=== PATIENT | female | born 1980 | race American Indian/Alaskan Native ===

== ENCOUNTER 2018-11-17 12:36 | Inpatient (IN) | payer OTHER ==
[2018-11-17] MEDS ORDERED: ZOFRAN ONE (14:16)
[2018-11-17] MEDS ORDERED: ATIVAN IM PRN (14:28)
[2018-11-17] MEDS ORDERED: HALDOL IM PRN (14:28)
[2018-11-17] MEDS ORDERED: ZOFRAN ODT PO PRN (14:28)
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
[2018-11-17] MEDS ORDERED: ZOFRAN IV ONE (14:48)
[2018-11-17 14:58] LABS: Basophils % (Auto) 0.8 % (0.0-1.8); Eosinophils % (Auto) 0.3 % (0.0-4.3); Hematocrit 33.1 % (30.3-42.9); Hemoglobin 10.5 gm/dl (10.1-14.3); Lymphocytes # (Auto) 1.8 K/mm3 (1.2-5.4); Lymphocytes % (Auto) 26.9 % (13.4-35.0); Mean Corpuscular HGB Conc 32 % (30-34); Mean Corpuscular Volume 76 fl (79-97); Monocytes # (Auto) 0.6 K/mm3 (0.0-0.8); Monocytes % (Auto) 9.5 % (0.0-7.3); Platelet Count 181 K/mm3 (140-440); Red Blood Count 4.36 M/mm3 (3.65-5.03); Red Cell Distribution Width 15.3 % (13.2-15.2)
[2018-11-17 15:02] LABS: Bilirubin,Urine NEG (Negative); Blood,Urine NEG (Negative); Color,Urine Yellow (Yellow); Mucus,Urine FEW /HPF; Protein,Urine <15 mg/dL mg/dL (Negative); Urobilinogen,Urine < 2.0 mg/dL (<2.0)
[2018-11-17 15:10] LABS: Amphetamine Screen,Urine PRESUMPTIVE NEGATIVE; Benzodiazepines Screen,Urine PRESUMPTIVE NEGATIVE; Cannabinoid Screen,Urine PRESUMPTIVE NEGATIVE; Cocaine Screen,Urine PRESUMPTIVE NEGATIVE; Methadone Screen,Urine PRESUMPTIVE NEGATIVE; Opiate Screen,Urine PRESUMPTIVE NEGATIVE
[2018-11-17 15:10] LABS: BUN/Creatinine Ratio 7; Blood Urea Nitrogen 4 mg/dL (7-17); Calcium 8.9 mg/dL (8.4-10.2); Hemolysis Index 2
[2018-11-17] MEDS ORDERED: NACL 0.9% 1000 ML 1,000 ML IV ONE (16:24)
[2018-11-17 16:51] LABS: INR 1.17 (0.87-1.13)
[2018-11-17] MEDS ORDERED: SODIUM CHLORIDE FLUSH SYRINGE 10 ML IV PRN (16:54)
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
[2018-11-17] MEDS: KCL 10MEQ/100ML 10 MEQ/100 ML BAG IV SCH ×2 (16:59→19:27)
[2018-11-17] MEDS ORDERED: D5W IV ONE ×3 (17:00→22:30)
[2018-11-17] MEDS ORDERED: ACETADOTE IV ONE ×3 (17:00→22:30)
[2018-11-17 17:08] LABS: Partial Thromboplastin Time 21.9 Sec. (24.2-36.6)
[2018-11-17 17:14] LABS: VEN PH 7.339 (7.320-7.420)
--- NOTE | 2018-11-17 17:46 | XRay Report ---
CHEST 1 VIEW INDICATION / CLINICAL INFORMATION: n/v weak. COMPARISON: None available. FINDINGS: SUPPORT DEVICES: None. HEART / MEDIASTINUM: No significant abnormality. LUNGS / PLEURA: No significant pulmonary or pleural abnormality. No pneumothorax. ADDITIONAL FINDINGS: No significant additional findings. IMPRESSION: No acute pulmonary or pleural abnormality. Signer Name: Rafita Chacon MD FACR Signed: 11/17/2018 5:42 PM Workstation Name: [id number]
--- NOTE | 2018-11-17 18:10 | Cat Scan Report ---
CT head/brain wo con INDICATION: Altered mental status. TECHNIQUE: Routine CT head without contrast. All CT scans at this location are performed using CT dos e reduction for ALARA by means of automated exposure control. COMPARISON: None. FINDINGS: BRAIN / INTRACRANIAL CONTENTS: No acute hemorrhage, mass effect, midline shift, or hydrocephalus. No appreciable acute large territorial or lacunar infarct. No chronic infarct or focal atrophy. Normal b rain volume and ventricular/sulcal size for age. ORBITS: No significant abnormality of visualized orbits. SINUSES / MASTOIDS: No significant abnormality of visualized sinuses and mastoid air cells. ADDITIONAL FINDINGS: None. IMPRESSION: 1. No acute intracranial abnormality. Signer Name: Terry Samson MD Signed: 11/17/2018 6:06 PM Workstation Name: [id number]
[2018-11-17 18:16] LABS: Albumin 4.4 g/dL (3.9-5); Bilirubin,Direct 0.3 mg/dL (0-0.2)
[2018-11-17] MEDS ORDERED: KCL 10MEQ/100ML 10 MEQ/100 ML BAG IV ONE (19:14)
[2018-11-17] MEDS ORDERED: NACL 0.9% 1000 ML 1,000 ML ONE (19:14)
[2018-11-17] MEDS: SODIUM CHLORIDE FLUSH SYRINGE 10 ML IV SCH (23:37)
[2018-11-18] MEDS: SODIUM CHLORIDE FLUSH SYRINGE 10 ML IV SCH ×2 (10:00→21:22)
--- NOTE | 2018-11-18 12:13 | Progress Note ---
Assessment and Plan / Acetaminophen overdose Admited to ICU: Poison control notified, placed on IVF resuscitation therapy, IV Mucomyst therapy, follow acetaminophen, INR, liver panel in hour 19 or 20 of therapy. cont to monitor LFT and tylenol level / Obesity (BMI 30.0-34.9) balanced diet, increased physical activity at discharge, /hypokalemia, replete and monitor / Metabolic Acidosis from Acetaminophen overdose IVF resuscitation therapy, repeat bmp / Suicidal deliberate poisoning mental Health consulted, on 1013 / DVT prophylaxis SCD to BLE while in bed, supportive care. Subjective Date of service: 11/18/18 Interval history: Patient seen and examined denies abdominal pain, wants to eat states has no SI anymore No chest pain or SOB Objective - Constitutional Vitals: Vital Signs - 12hr 11/18/18 11/18/18 11/18/18 00:15 00:30 00:45 Temperature Pulse Rate 64 68 66 Pulse Rate [ From Monitor] Pulse Rate [ None] Respiratory 16 17 18 Rate Blood Pressure 123/67 117/60 117/60 O2 Sat by Pulse 100 100 100 Oximetry 11/18/18 11/18/18 11/18/18 01:00 01:15 01:30 Temperature Pulse Rate 74 79 77 Pulse Rate [ From Monitor] Pulse Rate [ None] Respiratory 16 14 18 Rate Blood Pressure 114/72 124/76 109/57 O2 Sat by Pulse 99 100 100 Oximetry 11/18/18 11/18/18 11/18/18 01:45 02:00 02:15 Temperature Pulse Rate 65 65 66 Pulse Rate [ From Monitor] Pulse Rate [ None] Respiratory 18 16 18 Rate Blood Pressure 124/76 107/59 107/59 O2 Sat by Pulse 100 99 100 Oximetry 11/18/18 11/18/18 11/18/18 02:30 02:45 03:00 Temperature Pulse Rate 66 68 64 Pulse Rate [ From Monitor] Pulse Rate [ None] Respiratory 17 16 15 Rate Blood Pressure 105/58 105/58 113/64 O2 Sat by Pulse 97 99 98 Oximetry 11/18/18 11/18/18 11/18/18 03:15 03:30 03:45 Temperature Pulse Rate 62 62 64 Pulse Rate [ From Monitor] Pulse Rate [ None] Respiratory 16 16 15 Rate Blood Pressure 113/64 107/62 107/62 O2 Sat by Pulse 100 98 99 Oximetry 0911/18/18 11/18/18 03:48 04:00 04:15 Temperature 98 F 98 F Pulse Rate 71 68 Pulse Rate [ 62 From Monitor] Pulse Rate [ 79 None] Respiratory 21 20 12 Rate Blood Pressure 107/62 114/71 114/71 O2 Sat by Pulse 99 99 100 Oximetry 11/18/18 11/18/18 11/18/18 04:30 04:45 05:01 Temperature Pulse Rate 69 59 L 58 L Pulse Rate [ From Monitor] Pulse Rate [ None] Respiratory 18 16 16 Rate Blood Pressure 108/75 108/75 130/73 O2 Sat by Pulse 100 99 100 Oximetry 11/18/18 11/18/18 11/18/18 05:15 05:30 05:45 Temperature Pulse Rate 57 L 57 L 56 L Pulse Rate [ From Monitor] Pulse Rate [ None] Respiratory 16 18 14 Rate Blood Pressure 130/73 140/77 140/77 O2 Sat by Pulse 100 99 99 Oximetry 11/18/18 11/18/18 11/18/18 06:01 06:15 06:30 Temperature Pulse Rate 58 L 60 62 Pulse Rate [ From Monitor] Pulse Rate [ None] Respiratory 15 18 13 Rate Blood Pressure 149/73 149/73 150/82 O2 Sat by Pulse 100 99 99 Oximetry 11/18/18 11/18/18 11/18/18 06:45 07:01 07:15 Temperature Pulse Rate 62 61 60 Pulse Rate [ From Monitor] Pulse Rate [ None] Respiratory 18 15 16 Rate Blood Pressure 150/82 123/68 123/68 O2 Sat by Pulse 99 98 99 Oximetry 11/18/18 11/18/18 11/18/18 07:30 07:45 07:53 Temperature Pulse Rate 57 L 68 Pulse Rate [ From Monitor] Pulse Rate [ None] Respiratory 15 19 Rate Blood Pressure 138/93 138/93 O2 Sat by Pulse 97 98 99 Oximetry 11/18/18 11/18/18 11/18/18 08:00 08:15 08:30 Temperature 98.0 F Pulse Rate 76 60 67 Pulse Rate [ 59 L From Monitor] Pulse Rate [ 65 None] Respiratory 17 15 18 Rate Blood Pressure 139/81 139/81 127/79 O2 Sat by Pulse 94 99 100 Oximetry 11/18/18 11/18/18 11/18/18 08:45 08:55 09:00 Temperature Pulse Rate 77 59 L 78 Pulse Rate [ From Monitor] Pulse Rate [ None] Respiratory 12 17 Rate Blood Pressure 127/79 137/89 O2 Sat by Pulse 99 97 Oximetry 11/18/18 11/18/18 11/18/18 09:15 09:30 09:45 Temperature Pulse Rate 79 67 70 Pulse Rate [ From Monitor] Pulse Rate [ None] Respiratory 14 18 16 Rate Blood Pressure 137/89 151/90 151/90 O2 Sat by Pulse 99 98 98 Oximetry 11/18/18 11/18/18 11/18/18 10:00 10:15 10:30 Temperature Pulse Rate 70 71 70 Pulse Rate [ From Monitor] Pulse Rate [ None] Respiratory 18 15 12 Rate Blood Pressure 147/89 147/89 156/90 O2 Sat by Pulse 97 100 97 Oximetry 11/18/18 11/18/18 11/18/18 10:45 11:01 11:15 Temperature Pulse Rate 80 76 68 Pulse Rate [ From Monitor] Pulse Rate [ None] Respiratory 21 15 22 Rate Blood Pressure 156/90 176/80 176/80 O2 Sat by Pulse 100 97 98 Oximetry 11/18/18 11/18/18 11:31 12:00 Temperature 99.2 F Pulse Rate 78 Pulse Rate [ From Monitor] Pulse Rate [ 78 None] Respiratory 8 L 16 Rate Blood Pressure 186/72 177/78 O2 Sat by Pulse 96 99 Oximetry General appearance: Present: no acute distress, obese - EENT Eyes: PERRL, EOM intact ENT: hearing intact, clear oral mucosa Ears: bilateral: normal - Neck Neck: supple, normal ROM - Respiratory Respiratory effort: normal Respiratory: bilateral: CTA - Cardiovascular Rhythm: regular Heart Sounds: Present: S1 & S2. Absent: gallop, rub Extremities: pulses intact, No edema, normal color, Full ROM - Gastrointestinal General gastrointestinal: Present: soft, non-tender, non-distended, normal bowel sounds - Genitourinary Female genitourinary: normal - Integumentary Integumentary: clear, warm, dry - Musculoskeletal Musculoskeletal: 1, strength equal bilaterally - Neurologic Neurologic: moves all extremities - Psychiatric Psychiatric: intact judgment & insight, memory intact, depressed - Labs CBC & Chem 7: 11/19/18 06:32 11/20/18 04:08 Labs: Abnormal lab results 11/17/18 11/17/18 11/17/18 Range/Units 14:29 14:29 14:29 MCV (79-97) fl MCH (28-32) pg RDW (13.2-15.2) % [place] % (Auto) (0.0-7.3) % INR (0.87-1.13) APTT (24.2-36.6) Sec. Potassium 3.3 L (3.6-5.0) mmol/L Carbon Dioxide 21 L (22-30) mmol/L BUN 4 L (7-17) mg/dL Creatinine 0.6 L (0.7-1.2) mg/dL Glucose 134 H (65-100) mg/dL Direct Bilirubin (0-0.2) mg/dL Salicylates < 0.3 L (2.8-20.0) mg/dL Acetaminophen > 200.0 H* (10.0-30.0) ug/mL 11/17/18 11/17/18 11/17/18 Range/Units 14:29 16:16 17:15 MCV 76 L (79-97) fl MCH 24 L (28-32) pg RDW 15.3 H (13.2-15.2) % [place] % (Auto) 9.5 H (0.0-7.3) % INR 1.17 H (0.87-1.13) APTT 21.9 L (24.2-36.6) Sec. Potassium (3.6-5.0) mmol/L Carbon Dioxide (22-30) mmol/L BUN (7-17) mg/dL Creatinine (0.7-1.2) mg/dL Glucose (65-100) mg/dL Direct Bilirubin 0.3 H (0-0.2) mg/dL Salicylates (2.8-20.0) mg/dL Acetaminophen (10.0-30.0) ug/mL - Imaging and cardiology Chest x-ray: report reviewed CT Scan - head: report reviewed US - abdomen: report reviewed
[2018-11-18 15:40] LABS: INR 1.38 (0.87-1.13)
[2018-11-18 15:54] LABS: Albumin 3.7 g/dL (3.9-5); Bilirubin,Direct 0.2 mg/dL (0-0.2)
[2018-11-18] MEDS: IBUPROFEN PO PRN (18:20)
--- NOTE | 2018-11-18 19:24 | Consultation ---
History of Present Illness Consult date: 11/18/18 Requesting physician: LUZ WEINER Reason for consult: other (Tylenol OD) History of present illness: 38 yo took 50 Tylenol pills in efforts to harm herself. She is s/p NAC per protocol. She has no complaints. She denies abd pain, N/V, SOB, chest pain. She denies SI/HI now. Active Medications Haloperidol Lactate (Haldol) 5 mg IM Q6HR PRN PRN Reason: Agitation Ibuprofen (Ibuprofen) 600 mg PO Q6H PRN PRN Reason: Headache Last Admin: 11/18/18 18:20 Dose: 600 mg Documented by: Lorazepam (Ativan) 2 mg IM Q4HR PRN PRN Reason: Agitation Ondansetron HCl (Zofran) 4 mg IV Q6H PRN PRN Reason: Nausea And Vomiting Sodium Chloride (Sodium Chloride Flush Syringe 10 Ml) 10 ml IV BID [facility] Last Admin: 11/18/18 10:00 Dose: 10 ml Documented by: Sodium Chloride (Sodium Chloride Flush Syringe 10 Ml) 10 ml IV PRN PRN PRN Reason: LINE FLUSH Past History Past Medical History: No medical history, other (reviewed) Past Surgical History: Other (Skin graft, Left Hand) Social history: single, smoking (hookah), alcohol abuse (occ.), full code. denies: prescription drug abuse, IV drug use Family history: no significant family history (reviewed), other (No pulm issues reported) Medications and Allergies Allergies Allergy/AdvReac Type Severity Reaction Status Date / Time amoxicillin Allergy Unknown Verified 11/17/18 13:45 Home Medications Medication Instructions Recorded Confirmed Last Taken Type No Known Home Medications [No 11/18/18 11/18/18 Unknown History Reported Home Medications] Active Meds: Active Medications Haloperidol Lactate (Haldol) 5 mg IM Q6HR PRN PRN Reason: Agitation Ibuprofen (Ibuprofen) 600 mg PO Q6H PRN PRN Reason: Headache Last Admin: 11/18/18 18:20 Dose: 600 mg Documented by: Lorazepam (Ativan) 2 mg IM Q4HR PRN PRN Reason: Agitation Ondansetron HCl (Zofran) 4 mg IV Q6H PRN PRN Reason: Nausea And Vomiting Sodium Chloride (Sodium Chloride Flush Syringe 10 Ml) 10 ml IV BID [facility] Last Admin: 11/18/18 10:00 Dose: 10 ml Documented by: Sodium Chloride (Sodium Chloride Flush Syringe 10 Ml) 10 ml IV PRN PRN PRN Reason: LINE FLUSH Review of Systems All systems: negative Physical Examination Vital signs: Vital Signs Pulse Ox 97 11/17/18 15:12 General appearance: no acute distress, alert Eyes: non-icteric Neck: supple Effort: normal Ascultation: Bilateral: clear Cardiovascular: regular rate and rhythm Gastrointestinal: normoactive bowel sounds, soft, non-tender Integumentary: normal Extremities: no cyanosis, no edema, pink and warm Musculoskeletal: no deformities normal mental status, non-focal exam, pupils equal and round mood appropriate, affect normal Results - Laboratory Findings CBC and BMP: 11/17/18 14:29 11/17/18 14:29 PT/INR, D-dimer PT 16.6 Sec. (12.2-14.9) H 11/18/18 15:12 INR 1.38 (0.87-1.13) H 11/18/18 15:12 Abnormal lab findings: Abnormal Labs 11/17/18 11/17/18 11/17/18 14:29 14:29 14:29 MCV MCH RDW [place] % (Auto) PT INR APTT Potassium 3.3 L Carbon Dioxide 21 L BUN 4 L Creatinine 0.6 L Glucose 134 H Total Bilirubin Direct Bilirubin Albumin Salicylates < 0.3 L Acetaminophen > 200.0 H* 11/17/18 11/17/18 11/17/18 14:29 16:16 17:15 MCV 76 L MCH 24 L RDW 15.3 H [place] % (Auto) 9.5 H PT INR 1.17 H APTT 21.9 L Potassium Carbon Dioxide BUN Creatinine Glucose Total Bilirubin Direct Bilirubin 0.3 H Albumin Salicylates Acetaminophen 11/18/18 11/18/18 11/18/18 15:08 15:12 15:12 MCV MCH RDW [place] % (Auto) PT 16.6 H INR 1.38 H APTT Potassium Carbon Dioxide BUN Creatinine Glucose Total Bilirubin 6.40 H Direct Bilirubin Albumin 3.7 L Salicylates Acetaminophen < 5.0 L - Diagnostic Findings Chest x-ray: report reviewed, image reviewed (clear lungs) Assessment and Plan Imp: 1. Tylenol OD 2. Suicide attempt 3. Hyperbilirubinemia 4. Obesity Rec: 1. Finished NAC per protocol 2. Cont. close hepatic function monitoring 3. Okay to advance diet 4. Okay to transfer out of ICU; will need 1:1 observation pending Psych eval.; once out of ICU we will sign off 5. Await Psych eval. Plan of care reviewed w/ patient, she understands/agrees
[2018-11-18] MEDS: NACL 0.9% 1000 ML 1,000 ML IV SCH (23:06)
[2018-11-19] MEDS: IBUPROFEN PO PRN ×2 (00:54→14:56)
[2018-11-19 06:52] LABS: Basophils # (Auto) 0.1 K/mm3 (0.0-0.1); Basophils % (Auto) 0.9 % (0.0-1.8); Eosinophils # (Auto) 0.2 K/mm3 (0.0-0.4); Eosinophils % (Auto) 2.9 % (0.0-4.3); Hematocrit 26.8 % (30.3-42.9); Hemoglobin 8.6 gm/dl (10.1-14.3); Lymphocytes # (Auto) 1.6 K/mm3 (1.2-5.4); Lymphocytes % (Auto) 28.1 % (13.4-35.0); Mean Corpuscular HGB Conc 32 % (30-34); Mean Corpuscular Volume 76 fl (79-97); Monocytes # (Auto) 0.4 K/mm3 (0.0-0.8); Monocytes % (Auto) 7.1 % (0.0-7.3); Platelet Count 201 K/mm3 (140-440); Red Blood Count 3.52 M/mm3 (3.65-5.03); Red Cell Distribution Width 15.4 % (13.2-15.2)
[2018-11-19 07:05] LABS: INR 1.3 (0.87-1.13)
[2018-11-19 07:29] LABS: Alanine Aminotransferase 9 units/L (7-56); Albumin 3.5 g/dL (3.9-5); BUN/Creatinine Ratio 22; Blood Urea Nitrogen 11 mg/dL (7-17); Calcium 8.5 mg/dL (8.4-10.2); Hemolysis Index 3
[2018-11-19] MEDS: NACL 0.9% 1000 ML 1,000 ML IV SCH (09:26)
[2018-11-19] MEDS: SODIUM CHLORIDE FLUSH SYRINGE 10 ML IV SCH ×2 (09:28→21:00)
--- NOTE | 2018-11-19 11:53 | Gastroenterology Consultation ---
History of Present Illness - Reason for Consult Consult date: 11/19/18 elevated LFT/tylenol toxicity Requesting physician: QUAN SIMONS - History of Present Illness Patient is a 38 y/o female with no significant past medical history who was admitted for acetaminophen overdose/suicide attempt to which GI has been consulted. Psych consult pending. She is s/p NAC per protocol. This morning patient was resting in bed w/o acute distress. Currently w/o GI complaints such as abdominal pain, N/V, jaundice, signs of bleeding, or LGI symptoms. Tolerating clears. Denies SI/HI now. No hx or Fhx of liver disease. Reports no alcohol or IV drug use. Past History Past Medical History: No medical history Past Surgical History: Other (Skin graft, Left Hand) Social history: single, smoking (hookah), full code. denies: alcohol abuse (occ), prescription drug abuse, IV drug use Family history: no significant family history Medications and Allergies Allergies Allergy/AdvReac Type Severity Reaction Status Date / Time amoxicillin Allergy Unknown Verified 11/17/18 13:45 Home Medications Medication Instructions Recorded Confirmed Last Taken Type No Known Home Medications [No 11/18/18 11/18/18 Unknown History Reported Home Medications] Active Meds: Active Medications Haloperidol Lactate (Haldol) 5 mg IM Q6HR PRN PRN Reason: Agitation Sodium Chloride (Nacl 0.9% 1000 Ml) 1,000 mls @ 100 mls/hr IV DIRECT [facility] Last Admin: 11/19/18 09:26 Dose: 100 mls/hr Documented by: Ibuprofen (Ibuprofen) 600 mg PO Q6H PRN PRN Reason: Headache Last Admin: 11/19/18 00:54 Dose: 600 mg Documented by: Lorazepam (Ativan) 2 mg IM Q4HR PRN PRN Reason: Agitation Ondansetron HCl (Zofran) 4 mg IV Q6H PRN PRN Reason: Nausea And Vomiting Sodium Chloride (Sodium Chloride Flush Syringe 10 Ml) 10 ml IV BID [facility] Last Admin: 11/19/18 09:28 Dose: 10 ml Documented by: Sodium Chloride (Sodium Chloride Flush Syringe 10 Ml) 10 ml IV PRN PRN PRN Reason: LINE FLUSH Last Admin: 11/18/18 23:06 Dose: 10 ml Documented by: medications reviewed/updated as required Review of Systems - Review of Systems All systems: negative Gastrointestinal: no abdominal pain, no nausea, no vomiting, no jaundice Exam - Constitutional Vital Signs: Temp Pulse Resp BP Pulse Ox 98.1 F 73 20 116/76 96 11/19/18 06:10 11/19/18 10:00 11/19/18 10:00 11/19/18 06:10 11/19/18 10:00 General appearance: no acute distress - EENT Eyes: PERRL, EOM intact ENT: hearing intact - Respiratory Respiratory effort: normal Respiratory: bilateral: CTA - Cardiovascular Rhythm: regular - Gastrointestinal General gastrointestinal: Present: soft, non-tender, non-distended, normal bowel sounds - Neurologic Neurological: alert and oriented x3 - Labs CBC & Chem 7: 11/19/18 06:32 11/19/18 06:32 Lab Results: Laboratory Results - last 24 hr 11/18/18 11/18/18 11/18/18 15:08 15:12 15:12 WBC RBC Hgb Hct MCV MCH MCHC RDW Plt Count Lymph % (Auto) [place] % (Auto) Eos % (Auto) Baso % (Auto) Lymph # [place] # Eos # Baso # Seg Neutrophils % Seg Neutrophils # PT 16.6 H INR 1.38 H Sodium Potassium Chloride Carbon Dioxide Anion Gap BUN Creatinine Estimated GFR BUN/Creatinine Ratio Glucose Calcium Total Bilirubin 6.40 H Direct Bilirubin 0.2 Indirect Bilirubin 6.2 AST 11 ALT 9 Alkaline Phosphatase 51 Total Protein 6.4 Albumin 3.7 L Albumin/Globulin Ratio 1.4 Acetaminophen < 5.0 L 11/19/18 11/19/18 11/19/18 06:32 06:32 06:32 WBC 5.5 RBC 3.52 L Hgb 8.6 L Hct 26.8 L D MCV 76 L MCH 25 L MCHC 32 RDW 15.4 H Plt Count 201 Lymph % (Auto) 28.1 [place] % (Auto) 7.1 Eos % (Auto) 2.9 Baso % (Auto) 0.9 Lymph # 1.6 [place] # 0.4 Eos # 0.2 Baso # 0.1 Seg Neutrophils % 61.0 Seg Neutrophils # 3.4 PT 15.9 H INR 1.30 H Sodium 138 Potassium 3.2 L Chloride 105.3 Carbon Dioxide 26 Anion Gap 10 BUN 11 Creatinine 0.5 L Estimated GFR > 60 BUN/Creatinine Ratio 22 Glucose 94 Calcium 8.5 Total Bilirubin 7.50 H Direct Bilirubin Indirect Bilirubin AST 13 ALT 9 Alkaline Phosphatase 51 Total Protein 6.3 Albumin 3.5 L Albumin/Globulin Ratio 1.3 Acetaminophen Assessment and Plan 1.acetaminophen overdose 2.elevated LFTs -INR 1.30-stable (preserved synthetic liver function) -LFTs- T.elisabeth 7.50-trending up (AST, ALT, and alk phos WNL) -acetaminophen level >200 upon admission- s/p NAC per protocol (cleared per po asha control this am per nursing) -clinically, patient is w/o GI complaints. Denies abd pain, N/V, jaundice, or signs of bleeding. Tolerating clears. -abdominal U/S for evaluation of liver -advance diet as tolerated -avoid hepatotoxic medications -continue to trend labs and supportive care -if labs stable in am, okay to be d/c per GI standpoint once cleared by psych with f/u in clinic
--- NOTE | 2018-11-19 15:59 | Consultation ---
History of Present Illness - Reason for Consult Consult date: 11/19/18 Reason for consult: Mental Health Evaluation Requesting physician: QUAN SIMONS - Chief Complaint Chief complaint: "I want to go home" - History of Present Psychiatric Illness 38 y.o. AA female who presented to the ER for overdosing on Tylenol. Today the patient was calm during the assessment. She stated that she is dealing with several life stressors and she became overwhelmed 2 days ago and intentionally took 50 Tylenol pills to kill herself. She stated that she wanted to end her life because of the "stress." She stated that she do not have a support system because her family reside is located in [place], [place]. She denies a previous suicide attempt when asked. She is adamant that she should be discharged. She denies SI/HI's and AVH's. She denies erratic sleep and a poor appetite. She denies recreational drug use and alcohol consumption (etoh). Medications and Allergies Allergies Allergy/AdvReac Type Severity Reaction Status Date / Time amoxicillin Allergy Unknown Verified 11/17/18 13:45 Home Medications Medication Instructions Recorded Confirmed Last Taken Type No Known Home Medications [No 11/18/18 11/18/18 Unknown History Reported Home Medications] Active Meds: Active Medications Haloperidol Lactate (Haldol) 5 mg IM Q6HR PRN PRN Reason: Agitation Sodium Chloride (Nacl 0.9% 1000 Ml) 1,000 mls @ 100 mls/hr IV DIRECT [facility] Last Admin: 11/19/18 09:26 Dose: 100 mls/hr Documented by: Ibuprofen (Ibuprofen) 600 mg PO Q6H PRN PRN Reason: Headache Last Admin: 11/19/18 14:56 Dose: 600 mg Documented by: Lorazepam (Ativan) 2 mg IM Q4HR PRN PRN Reason: Agitation Ondansetron HCl (Zofran) 4 mg IV Q6H PRN PRN Reason: Nausea And Vomiting Sodium Chloride (Sodium Chloride Flush Syringe 10 Ml) 10 ml IV BID [facility] Last Admin: 11/19/18 09:28 Dose: 10 ml Documented by: Sodium Chloride (Sodium Chloride Flush Syringe 10 Ml) 10 ml IV PRN PRN PRN Reason: LINE FLUSH Last Admin: 11/18/18 23:06 Dose: 10 ml Documented by: Past psychiatric history - Past Medical History Past Medical History: other (Preg x 3) Past Surgical History: No surgical history - past Psychiatric treatment and history psychiatric treatment history: Denies a psy hx and fam psy hx. - Social History Social history: lives with family Mental Status Exam - Vital signs Last Vital Signs Temp 99.4 F 11/19/18 12:09 Pulse 86 11/19/18 12:09 Resp 15 11/19/18 12:09 BP 117/74 11/19/18 12:09 Pulse Ox 99 11/19/18 12:09 - Exam Narrative exam: MSE: Appearance: in hospital attire Behavior: poor eye contact Speech: regular rate and tone Mood: "okay" Affect: flat Thought Process: circumstantial Thought Content: denies SI/HI's and AVH's Motor Activity: laying in bed Cognition: A/O x3 Insight: variable Judgment: poor Results Result Diagrams: 11/19/18 06:32 11/19/18 06:32 Abnormal lab results 11/18/18 11/19/18 11/19/18 Range/Units 15:12 06:32 06:32 RBC 3.52 L (3.65-5.03) M/mm3 Hgb 8.6 L (10.1-14.3) gm/dl Hct 26.8 L D (30.3-42.9) % MCV 76 L (79-97) fl MCH 25 L (28-32) pg RDW 15.4 H (13.2-15.2) % PT 15.9 H (12.2-14.9) Sec. INR 1.30 H (0.87-1.13) Potassium (3.6-5.0) mmol/L Creatinine (0.7-1.2) mg/dL Total Bilirubin (0.1-1.2) mg/dL Albumin (3.9-5) g/dL Acetaminophen < 5.0 L (10.0-30.0) ug/mL 11/19/18 Range/Units 06:32 RBC (3.65-5.03) M/mm3 Hgb (10.1-14.3) gm/dl Hct (30.3-42.9) % MCV (79-97) fl MCH (28-32) pg RDW (13.2-15.2) % PT (12.2-14.9) Sec. INR (0.87-1.13) Potassium 3.2 L (3.6-5.0) mmol/L Creatinine 0.5 L (0.7-1.2) mg/dL Total Bilirubin 7.50 H (0.1-1.2) mg/dL Albumin 3.5 L (3.9-5) g/dL Acetaminophen (10.0-30.0) ug/mL All other labs normal. Assessment and Plan Assessment and plan: Impression: MDD, Single Episode. Intentional Overdose. Today the patient was calm during the assessment. The patient is minimizing her actions. Tylenol levels was >200 on arrival to ER. DDx: R/O Bipolar DO Recommendation/Plan: Continue 1013. Discussed risks/benefits of SSRI's with the patient, she refused medication treatment at this time. Dispo: The patient will be referred to inpatient psy services once medically clear. Staffed with Dr Sondra Merino.
--- NOTE | 2018-11-19 16:28 | Progress Note ---
Assessment and Plan / Acetaminophen overdose Admited to ICU: Poison control notified, placed on IVF resuscitation therapy, IV Mucomyst therapy, cont to monitor LFT and tylenol level /Elevated LFT due to Acetaminophen overdose - LFT trending up, consult GI / Obesity (BMI 30.0-34.9) balanced diet, increased physical activity at discharge, /hypokalemia, replete and monitor / Metabolic Acidosis from Acetaminophen overdose IVF resuscitation therapy, repeat bmp / Suicidal deliberate poisoning mental Health consulted, on 1013 / DVT prophylaxis SCD to BLE while in bed, supportive care. Disposition: when LFT trends down and clears by GI Subjective Date of service: 11/19/18 Interval history: Patient seen and examined denies abdominal pain, wants to go home states has no SI anymore No chest pain or SOB Objective - Exam Narrative Exam: General appearance: Present: no acute distress, obese - EENT Eyes: PERRL, EOM intact ENT: hearing intact, clear oral mucosa Ears: bilateral: normal - Neck Neck: supple, normal ROM - Respiratory Respiratory effort: normal Respiratory: bilateral: CTA - Cardiovascular Rhythm: regular Heart Sounds: Present: S1 & S2. Absent: gallop, rub Extremities: pulses intact, No edema, normal color, Full ROM - Gastrointestinal General gastrointestinal: Present: soft, non-tender, non-distended, normal bowel sounds - Genitourinary Female genitourinary: normal - Integumentary Integumentary: clear, warm, dry - Musculoskeletal Musculoskeletal: 1, strength equal bilaterally - Neurologic Neurologic: moves all extremities - Psychiatric Psychiatric: intact judgment & insight, memory intact, depressed - Constitutional Vitals: Vital Signs - 12hr 11/19/18 11/19/18 11/19/18 06:10 08:00 10:00 Temperature 98.1 F Pulse Rate 73 82 Pulse Rate [ 73 From Monitor] Respiratory 20 20 Rate Blood Pressure Blood Pressure 116/76 [Right] O2 Sat by Pulse 96 96 Oximetry 11/19/18 12:09 Temperature 99.4 F Pulse Rate 86 Pulse Rate [ From Monitor] Respiratory 15 Rate Blood Pressure 117/74 Blood Pressure [Right] O2 Sat by Pulse 99 Oximetry - Labs CBC & Chem 7: 11/19/18 06:32 11/20/18 04:08 Labs: Abnormal lab results 11/19/18 11/19/18 11/19/18 Range/Units 06:32 06:32 06:32 RBC 3.52 L (3.65-5.03) M/mm3 Hgb 8.6 L (10.1-14.3) gm/dl Hct 26.8 L D (30.3-42.9) % MCV 76 L (79-97) fl MCH 25 L (28-32) pg RDW 15.4 H (13.2-15.2) % PT 15.9 H (12.2-14.9) Sec. INR 1.30 H (0.87-1.13) Potassium 3.2 L (3.6-5.0) mmol/L Creatinine 0.5 L (0.7-1.2) mg/dL Total Bilirubin 7.50 H (0.1-1.2) mg/dL Albumin 3.5 L (3.9-5) g/dL
--- NOTE | 2018-11-19 19:32 | Ultrasound Report ---
ULTRASOUND ABDOMEN, COMPLETE INDICATION: Elevated liver function tests. COMPARISON: None available. FINDINGS: PANCREAS: No significant abnormality. ABDOMINAL AORTA: No significant abnormality. IVC: No significant abnormality.. LIVER: 12.9 cm in length with a normal echo pattern compared to the right renal cortex. No focal lesi on and normal directional blood flow in the main portal vein. GALLBLADDER: No significant abnormality. BILE DUCTS: No significant abnormality. Common bile duct measures 5.6 mm. KIDNEYS: Right: No significant abnormality Left: No significant abnormality SPLEEN: No significant abnormality. FREE FLUID: None. ADDITIONAL FINDINGS: None. IMPRESSION: No significant sonographic abnormality of the abdomen. Signer Name: Haile Gould MD Signed: 11/19/2018 7:28 PM Workstation Name: [id number]
[2018-11-20] MEDS: NACL 0.9% 1000 ML 1,000 ML IV SCH ×2 (00:25→11:34)
[2018-11-20 04:50] LABS: INR 1.12 (0.87-1.13)
[2018-11-20 05:08] LABS: Alanine Aminotransferase 11 units/L (7-56); Albumin 3.7 g/dL (3.9-5); BUN/Creatinine Ratio 14; Bilirubin,Direct 0.3 mg/dL (0-0.2); Blood Urea Nitrogen 7 mg/dL (7-17); Calcium 8.4 mg/dL (8.4-10.2); Hemolysis Index 7
--- NOTE | 2018-11-20 11:16 | Progress Note ---
Subjective - Reason for Consult Consult date: 11/20/18 Reason for consult: Psychiatric Follow-up Evaluation - Chief Complaint Chief complaint: "I feel good." Patient is a 38 y.o. AA female who presented to the ER for overdosing on Tylenol. Today the patient is calm and cooperative during the assessment. She stated that she is dealing with several life stressors and she became overwhelmed 2 days ago and intentionally took 50 Tylenol pills to kill herself. She reports appropriate sleep, appetite, and energy. She denies SI/HI's, A/VH's, and delusions. Patient reports that she doesn't need medication. She continues to present guarded and minimize symptoms. Mental Status Exam - Vital signs Last Vital Signs Temp 99.2 F 11/20/18 05:49 Pulse 90 11/20/18 05:49 Resp 20 11/20/18 05:49 BP 110/67 11/20/18 05:49 Pulse Ox 98 11/20/18 05:49 - Exam Narrative exam: Mental Status Exam Appearance: in hospital attire Behavior: intermittent eye contact Speech: regular rate and tone Mood: "I feel good" Affect: flat Thought Process: circumstantial Thought Content: denies SI/HI's, AVH's, and delusions Motor Activity: laying in bed Cognition: A/O x 3 Insight: variable Judgment: poor Assessment and Plan Impression: MDD, Single Episode. Intentional Overdose. Today the patient is calm and cooperative during the assessment. The patient is minimizing her actions. Tylenol levels was >200 on arrival to ER. DDx: R/O Bipolar DO Recommendation/Plan: 1. Continue 1013. 2. Discussed risks/benefits of SSRI's with the patient, she refused medication treatment at this time. Strongly encouraged medication. Disposition: The patient will be referred to inpatient psychiatric services once medically clear. Will staff with Dr. Sondra Merino.
[2018-11-20] MEDS: SODIUM CHLORIDE FLUSH SYRINGE 10 ML IV SCH ×2 (11:34→22:00)
[2018-11-20] MEDS: ZOFRAN IV PRN (11:36)
--- NOTE | 2018-11-20 15:21 | Gastroenterology Progress Note ---
Assessment and Plan GI: stable overnight w/o complaints - LFT's improving - ok to d/c from GI [id number] - will sign off, call if needed Subjective Date of service: 11/20/18 Interval history: - no GI complaints overnight Objective - Constitutional Vitals: Temp Pulse Resp BP Pulse Ox 98.9 F 86 16 125/83 100 11/20/18 11:06 11/20/18 11:06 11/20/18 11:06 11/20/18 11:06 11/20/18 11:06 General appearance: no acute distress - EENT Eyes: PERRL - Respiratory Respiratory: bilateral: CTA - Cardiovascular Rhythm: regular Heart Sounds: Present: S1 & S2 - Gastrointestinal General gastrointestinal: Present: soft, non-tender, non-distended - Labs CBC & Chem 7: 11/19/18 06:32 11/20/18 04:08 Labs: Laboratory Results - last 24 hr 11/20/18 11/20/18 04:08 04:08 PT 14.1 INR 1.12 Sodium 141 Potassium 3.1 L Chloride 106.5 Carbon Dioxide 23 Anion Gap 15 BUN 7 Creatinine 0.5 L Estimated GFR > 60 BUN/Creatinine Ratio 14 Glucose 92 Calcium 8.4 Total Bilirubin 4.20 H Direct Bilirubin 0.3 H Indirect Bilirubin 3.9 AST 13 ALT 11 Alkaline Phosphatase 55 Total Protein 6.7 Albumin 3.7 L Albumin/Globulin Ratio 1.2
--- NOTE | 2018-11-20 17:40 | Progress Note ---
Assessment and Plan / Acetaminophen overdose Admited to ICU: Poison control notified, placed on IVF resuscitation therapy, s/p IV Mucomyst therapy, cont to monitor LFT and tylenol level trended down /Elevated LFT due to Acetaminophen overdose - LFT trended down, hepatitis pannel negative, consulted GI and recommended outpt f/u / Obesity (BMI 30.0-34.9) balanced diet, increased physical activity at discharge, /hypokalemia, replete and monitor / Metabolic Acidosis from Acetaminophen overdose resolved with iv fluid / Suicidal deliberate poisoning mental Health consulted, on 101 / DVT prophylaxis SCD to BLE while in bed, supportive care. Disposition: when clears by psych. medically stable. Subjective Date of service: 11/20/18 Interval history: Patient seen and examined denies abdominal pain, wants to go home states has no SI anymore No chest pain or SOB Objective - Exam Narrative Exam: General appearance: Present: no acute distress, obese - EENT Eyes: PERRL, EOM intact ENT: hearing intact, clear oral mucosa Ears: bilateral: normal - Neck Neck: supple, normal ROM - Respiratory Respiratory effort: normal Respiratory: bilateral: CTA - Cardiovascular Rhythm: regular Heart Sounds: Present: S1 & S2. Absent: gallop, rub Extremities: pulses intact, No edema, normal color, Full ROM - Gastrointestinal General gastrointestinal: Present: soft, non-tender, non-distended, normal bowel sounds - Genitourinary Female genitourinary: normal - Integumentary Integumentary: clear, warm, dry - Musculoskeletal Musculoskeletal: 1, strength equal bilaterally - Neurologic Neurologic: moves all extremities - Psychiatric Psychiatric: intact judgment & insight, memory intact, depressed - Constitutional Vitals: Vital Signs - 12hr 11/20/18 11/20/18 11/20/18 05:49 11:06 16:34 Temperature 99.2 F 98.9 F 98.8 F Pulse Rate 90 86 88 Respiratory 20 16 16 Rate Blood Pressure 110/67 125/83 106/64 O2 Sat by Pulse 98 100 100 Oximetry - Labs CBC & Chem 7: 11/19/18 06:32 11/20/18 04:08 Labs: Abnormal lab results 11/20/18 Range/Units 04:08 Potassium 3.1 L (3.6-5.0) mmol/L Creatinine 0.5 L (0.7-1.2) mg/dL Total Bilirubin 4.20 H (0.1-1.2) mg/dL Direct Bilirubin 0.3 H (0-0.2) mg/dL Albumin 3.7 L (3.9-5) g/dL
[2018-11-20] MEDS: K-DUR PO SCH (17:56)
[2018-11-21 07:04] LABS: Albumin 3.3 g/dL (3.9-5); Bilirubin,Direct 0.3 mg/dL (0-0.2)
[2018-11-21] MEDS: ZOFRAN IV PRN (08:45)
[2018-11-21] MEDS: K-DUR PO SCH (09:03)
--- NOTE | 2018-11-21 10:10 | Discharge Summary ---
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 Notified:: awaiting call back 11/17/18 16:14 Consult to Physician [CONS] Urgent Comment: Consulting Provider: SHILA OSMAN Physician Instructions: Reason For Exam: apap od 11/19/18 08:19 Consult to Physician [CONS] Routine Comment: Consulting Provider: KAVON MASSEY Physician Instructions: Reason For Exam: elevated LFT with tylenol toxicity Primary care physician: [employer] Hospitalization Condition: Critical Pertinent studies: Abdominal US head CT CXR Hospital course: Discharge diagnosis and management: / Acetaminophen overdose Admited to ICU: Poison control notified, placed on IVF resuscitation therapy, s/p IV Mucomyst therapy, LFT and tylenol level trended down /Elevated LFT due to Acetaminophen overdose - LFT trended down, hepatitis pannel negative, consulted GI and recommended outpt f/u / Obesity (BMI 30.0-34.9) balanced diet, increased physical activity at discharge, /hypokalemia, replete and monitor / Metabolic Acidosis from Acetaminophen overdose resolved with iv fluid / Suicidal deliberate poisoning mental Health consulted, on 1013 / DVT prophylaxis SCD to BLE while in bed, supportive care. Disposition: when clears by psych. medically stable. Disposition: DC-01 TO HOME OR SELFCARE Time spent for discharge: 34 minutes Core Measure Documentation - Palliative Care Palliative Care/ Comfort Measures: Not Applicable - Core Measures Any of the following diagnoses?: none Exam - Physical Exam Narrative exam: General appearance: Present: no acute distress, obese - EENT Eyes: PERRL, EOM intact ENT: hearing intact, clear oral mucosa Ears: bilateral: normal - Neck Neck: supple, normal ROM - Respiratory Respiratory effort: normal Respiratory: bilateral: CTA - Cardiovascular Rhythm: regular Heart Sounds: Present: S1 & S2. Absent: gallop, rub Extremities: pulses intact, No edema, normal color, Full ROM - Gastrointestinal General gastrointestinal: Present: soft, non-tender, non-distended, normal bowel sounds - Genitourinary Female genitourinary: normal - Integumentary Integumentary: clear, warm, dry - Musculoskeletal Musculoskeletal: 1, strength equal bilaterally - Neurologic Neurologic: moves all extremities - Psychiatric Psychiatric: intact judgment & insight, memory intact, depressed - Constitutional Vitals: Temp Pulse Resp BP Pulse Ox 98.5 F 74 18 114/68 97 11/21/18 05:13 11/21/18 05:13 11/21/18 05:13 11/21/18 05:13 11/21/18 05:13 Plan Activity: advance as tolerated Weight Bearing Status: Weight Bear as Tolerated Diet: low fat, low salt Follow up with: PRIMARY CAREMD [Primary Care Provider] - 3-5 Days PARIS OTERO MD [Staff Physician] - 7 Days
[2018-11-21] MEDS: SODIUM CHLORIDE FLUSH SYRINGE 10 ML IV SCH ×2 (10:24→22:28)
--- NOTE | 2018-11-21 13:44 | Progress Note ---
Subjective - Reason for Consult Consult date: 11/21/18 Reason for consult: Psychiatry Follow-up - Chief Complaint Chief complaint: "I have done a lot of thinking about what i did" 38 y.o. AA female who presented to the ER for overdosing on Tylenol. Today the patient was calm and cooperative during the assessment. She was more engaging. She was willing to discuss her stressors when asked. She stated that she has a aunt that's her support system. She is willing to attend therapy sessions when discharged. She denies SI/HI's and AVH's. Mental Status Exam - Vital signs Last Vital Signs Temp 98.7 F 11/21/18 12:09 Pulse 76 11/21/18 12:09 Resp 18 11/21/18 12:09 BP 110/72 11/21/18 12:09 Pulse Ox 100 11/21/18 12:09 - Exam Narrative exam: MSE: Appearance: calm, cooperative Behavior: regular eye contact Speech: regular rate and tone Mood: "okay" Affect: congruent to mood Thought Process: linear Thought Content: denies SI/HI's and AVH's Motor Activity: laying in bed Cognition: A/O x3 Insight: fair Judgment: variable to fair Assessment and Plan Impression: MDD, Single Episode. Intentional Overdose. Today the patient was calm and cooperative during the assessment. DDx: R/O Bipolar DO Recommendation/Plan: Reevaluate the patient's 1013 in 24 hours and gather collateral information. Discussed risks/benefits of SSRI's with the patient, she prefer talk therapy at this time. Dispo: If the patient's 1013 is rescinded in 24 hours, she can follow up with [facility] for outpatient psy services. Will staff with Dr Sondra Merino.
--- NOTE | 2018-11-21 14:23 | Progress Note ---
Assessment and Plan / Acetaminophen overdose Admited to ICU: Poison control notified, placed on IVF resuscitation therapy, s/p IV Mucomyst therapy, LFT and tylenol level trended down /Elevated LFT due to Acetaminophen overdose - LFT trended down, hepatitis pannel negative, consulted GI and recommended outpt f/u / Obesity (BMI 30.0-34.9) balanced diet, increased physical activity at discharge, /hypokalemia, replete and monitor / Metabolic Acidosis from Acetaminophen overdose resolved with iv fluid / Suicidal deliberate poisoning mental Health consulted, on 1012 / DVT prophylaxis SCD to BLE while in bed, supportive care. Disposition: when clears by psych. medically stable. Subjective Date of service: 11/21/18 Interval history: Patient seen and examined denies abdominal pain, wants to go home states has no SI anymore No chest pain or SOB Objective - Exam Narrative Exam: General appearance: Present: no acute distress, obese - EENT Eyes: PERRL, EOM intact ENT: hearing intact, clear oral mucosa Ears: bilateral: normal - Neck Neck: supple, normal ROM - Respiratory Respiratory effort: normal Respiratory: bilateral: CTA - Cardiovascular Rhythm: regular Heart Sounds: Present: S1 & S2. Absent: gallop, rub Extremities: pulses intact, No edema, normal color, Full ROM - Gastrointestinal General gastrointestinal: Present: soft, non-tender, non-distended, normal bowel sounds - Genitourinary Female genitourinary: normal - Integumentary Integumentary: clear, warm, dry - Musculoskeletal Musculoskeletal: 1, strength equal bilaterally - Neurologic Neurologic: moves all extremities - Psychiatric Psychiatric: intact judgment & insight, memory intact, depressed - Constitutional Vitals: Vital Signs - 12hr 11/21/18 11/21/18 05:13 12:09 Temperature 98.5 F 98.7 F Pulse Rate 74 76 Respiratory 18 18 Rate Blood Pressure 114/68 110/72 O2 Sat by Pulse 97 100 Oximetry - Labs CBC & Chem 7: 11/19/18 06:32 11/21/18 11:57 Labs: Abnormal lab results 11/21/18 Range/Units 05:42 Total Bilirubin 1.40 H (0.1-1.2) mg/dL Direct Bilirubin 0.3 H (0-0.2) mg/dL Albumin 3.3 L (3.9-5) g/dL
[2018-11-21] MEDS: PROTONIX PO SCH (14:39)
[2018-11-22] MEDS: K-DUR PO SCH (09:20)
[2018-11-22] MEDS: PROTONIX PO SCH (09:21)
[2018-11-22] MEDS: SODIUM CHLORIDE FLUSH SYRINGE 10 ML IV SCH (09:22)
[2018-11-22 11:23] VITALS: BP 115/70
--- NOTE | 2018-11-22 12:54 | Progress Note ---
Subjective - Reason for Consult Consult date: 11/22/18 Reason for consult: Psychiatry Follow-up - Chief Complaint Chief complaint: "I will make better decisions" 38 y.o. AA female who presented to the ER for overdosing on Tylenol. Today the patient was calm and cooperative during the assessment. Per collateral information from the patient's aunt Aida Lindsay who was at the bedside, she stated that the patient was "stressed" when she ingested the pills. She demnies a previous suicide attempt by the patient in the past. She stated that she is the patient's support system. The patient is eager to follow up with outpatient psy services once discharged. She denies SI/HI's and AVH's. Mental Status Exam - Vital signs Last Vital Signs Temp 99.6 F 11/22/18 11:22 Pulse 93 H 11/22/18 11:22 Resp 20 11/22/18 11:22 BP 115/70 11/22/18 11:22 Pulse Ox 100 11/22/18 11:22 - Exam Narrative exam: MSE: Appearance: calm, cooperative Behavior: regular eye contact Speech: regular rate and tone Mood: "okay" Affect: congruent to mood Thought Process: linear Thought Content: denies SI/HI's and AVH's Motor Activity: laying in bed Cognition: A/O x3 Insight: appropriate Judgment: appropriate Assessment and Plan Impression: MDD, Single Episode. Intentional Overdose. Today the patient was calm and cooperative during the assessment. The patient is no threat to self. DDx: R/O Bipolar DO Suicide Risk Assessment I. This screening and assessment is based on information collected from the following sources: II. SUICIDE RISK SCREENING (within last 30 days): A.) Suicidal thoughts/behaviors: Yes SUICIDE RISK ASSESSMENT III. FACTORS THAT INCREASE RISK: A.) Demographic and Substance Use Factors: No B.) Current/Recent Factors (within past 3 months): Psychosocial/Environmental Factors: Life Stressors Physical Illness: None Cognitive/Psychological Factors: None C.) Historical Factors: None D.) Diagnostic/Symptom/Treatment Factors: None E.) Acute Risk Factor Severity (DESC; MILD/MOD/SEVERE): Mild Other factors for this individual that increase risk: None IV. FACTORS THAT DECREASE RISK: Resilience/Protective Factors: Patient want to decrease her stress Other factors for this individual that decrease risk: Patient denies a desire to harm self V. Clinician's Formulation of Risk and Determination of level of Care: This is a 38 y.o. AA female who ingested several Tylenol pills to kill herself. She acknowledged that she should have not ingested the pills when asked. She stated that she will follow-up with outpatient psy services once discharged. Since being hospitalized the patient has consistently denied the desire to harm herself. Additionally, she has become insightful about how to better address her current issues. The patient is not impaired by substance. She is able to take care of her ADLs and is not at imminent risk of harm to self or others. Consequently, it is the opinion of the treatment team that the patient is at low risk of suicide and does not meet criteria to continue an involuntary psychi atric hold. Estimation of Imminent Risk: Low due to the above explanation. Determination of Level of Care based on Suicide Risk: Outpatient follow-up. Narrative description of clinical reasoning. Given the fact that the patient is willing to engage in outpatient psy services care and has a supportive network (her aunt Aida Lindsay), it is reasonable to expect that the patient will seek services. At this current time, she is not impulsive and does not have any risk factors to increase the likelihood of her impulsive behavior. Therefore, it is reasonable to expect that the patient will engage in outpatient/rehab services which will reduce further unsafe behaviors. . Plan and Interventions based on Suicide Risk: This patient will likely be stepped down to an outpatient mental health center in the community upon discharge and follow-up within 7 days of her discharge from the hospital. VII. Discharge/After Hours Support Plan: Patient can return back to the ER, call 911 or crisis line if symptoms of depression, anxiety, suicidality return. Recommendation/Plan: Rescind 1013. Discussed risks/benefits of SSRI's with the patient, she prefer talk therapy at this time. Discussed generalized coping skills with the patient, she verbalized understanding. Dispo: The patient can follow up with [facility] for outpatient psy services. Staffed with Dr Sondra Merino.
== END 2018-11-22 13:52 | disposition home or self-care (01) | DRG 918 ==
LOC: ED 12:36 → CC1 16:54 → 3A 11-18 22:30
PROVIDERS: ADMIT Internal Medicine; ATTEND Internal Medicine
PROC: 4A033R1 Measurement of Arterial Saturation, Peripheral, Percutaneous Approach (ICD-10-PCS; principal; 2018-11-17)
DX: T39.1X2A Poisoning by 4-Aminophenol derivatives, intentional self-harm, initial encounter (principal); E87.2 Acidosis; Y92.89 Other specified places as the place of occurrence of the external cause; E66.9 Obesity, unspecified; Z68.35 Body mass index [BMI] 35.0-35.9, adult; E87.6 Hypokalemia; F32.9 Major depressive disorder, single episode, unspecified
CPT/HCPCS: 36415; 70450; 71045; 76700; 80048; 80053; 80076; 80307; 80320; 81001; 82247; 82248; 82375; 82550; 82805; 84132; 84702; 85025; 85610; 85730; 93005; 93010; 96365; 96375; G0378; G0480; J0132; J2405; J3480; J7030; J7060; J7070